=== PATIENT | female | born 1990 | race Two or more races ===

== ENCOUNTER 2023-07-13 16:13 | Emergency (ER) | payer MEDICAID, SELFPAY ==
[2023-07-13 16:32] VITALS: BP 110/77; PULSE 93; RESP 16; TEMP 36.8; O2SAT 99; BMI 28.6
--- NOTE | 2023-07-13 16:39 | ED_ITS ---
HPI - General Adult General Chief complaint: Abdominal Pain Stated complaint: vomiting diarrhea abd pain Source: patient Mode of arrival: ambulatory Limitations: no limitations History of Present Illness HPI narrative: Patient is a 32 year old assigned female at with no reported medical history presenting to the emergency department today with abdominal pain, nausea, vomiting, and diarrhea. Patient states that since yesterday she has had abdominal pain, nausea, and vomiting. Patient denies any dizziness, lightheadedness, fever, chills, blurry vision, double vision, loss of vision, chest pain, difficulty breathing, shortness of breath, back pain, night sweats, pain with urination, increased urinary frequency, increased urinary urgency, blood in her urine or stool, syncope or a near syncopal episode, recent trauma or falls, bowel incontinence, bladder incontinence, bowel retention, bladder retention, or any other complaints at this time. Onset (ago): day(s) (1) Severity: mild Relieving factors: none Exacerbating factors: none Associated symptoms: nausea/vomiting Treatments prior to arrival: none Related Data Allergies Allergy/AdvReac Type Severity Reaction Status Date / Time No Known Allergies Allergy Verified 07/13/23 16:35 [No Known Allergies*] Review of Systems 2 Constitutional: Constitutional: Reports no additional constitutional complaints, Denies chills, Denies fever(s) and Denies night sweats Eyes: Eyes: Reports no additional eye complaints, Denies blurry vision, Denies change in vision, Denies diplopia, Denies eye discharge, Denies loss of vision and Denies eye pain ENT: Denies dizziness Cardiovascular: Cardiovascular: Reports no additional cardiovascular complaints, Denies chest pain, Denies lightheadedness, Denies Loss of Consciousness and Denies dyspnea Respiratory: Respiratory: Reports no additional respiratory complaints and Denies dyspnea Gastrointestinal: Gastrointestinal: Reports no additional gastrointestinal complaints, Reports abdominal pain, Denies melena, Denies hematochezia, Denies change in bowel habits, Denies change in stool character, Reports diarrhea, Reports nausea and Reports vomiting Genitourinary: Genitourinary: Denies hematuria, Denies urinary frequency, Denies dysuria, Denies urinary incontinence, Denies urinary hesitancy and Denies urinary urgency Musculoskeletal: Musculoskeletal: Reports no additional musculoskeletal complaints, Denies numbness and Denies tingling Neurologic: Denies dizziness, Denies loss of vision, Denies numbness and Denies tingling Psychiatric: Psychiatric: Reports no additional psychiatric complaints Endocrine: Endocrine: Reports no additional endocrine complaints Hematologic/Lymphatic: Hematologic/Lymphatic: Reports no additional hematologic/lymphatic complaints Allergic/Immunologic: Allergic/Immunologic: Reports no additional allergic/immunologic complaints PMFSH Past Medical History Attestation statement: The following information was validated with the patient. Source: old records reviewed and nursing notes reviewed Social History Social History Advance Directives: No Advance Directives Information Provided: No Do you have a plan to hurt others: No Plan Physical Exam ED Vital Signs: Vital Signs - 24 hr 07/13/23 16:32 Temperature 98.3 F Pulse Rate 93 Respiratory Rate 16 Blood Pressure 110/77 Pulse Oximetry 99 Oxygen Delivery Method Room Air BMI result Body Mass Index 28.6 Const General: cooperative, no acute distress, alert and awake Nutritional Appearance: well nourished Orientation/consciousness: patient oriented x3 Limitations: no limitations HENMT Head: Yes normal to inspection and Yes atraumatic Ears: hearing grossly normal bilaterally and external ears normal General nose exam: Normal external nose present, no nasal discharge noted and no epistaxis Face and sinus: Yes normal facial exam, No abrasion and No laceration Mouth: Normal oral and palatal mucosa present, no drooling and no muffled voice Eyes General: appearance normal, both eyes and all related structures Periorbital: periorbital findings normal Eyelids: Yes eyelids normal Conjunctivae: conjunctivae normal Pupils: Equal, round and reactive pupils present EOM: EOMs intact bilaterally Neck Neck: Yes normal visual inspection, Yes full ROM and Yes no lymphadenopathy Chest Chest palpation & inspection: normal inspection of the chest Resp Effort & Inspection: normal respiratory effort and able to speak in complete sentences GI Inspection: Yes normal to inspection Neuro General: patient oriented x3 and moves all extremities Cranial nerves: Yes Equal, round and reactive pupils present Cognition (Neuro): normal cognition Motor exam (neuro): 5/5 motor strength present throughout Sensory Exam: Normal double simultaneous stimulation for sensation Coordination: [id number] test normal Extrem General: Yes normal to inspection, Yes full ROM and Yes capillary refill normal Psych Appearance: grossly normal Mental Status: mental status grossly normal Affect: normal affect Attitude: cooperative Thought process: Normal thought process present Thought content: Normal thought content present Insight: Good insight present (Psych) Course Course Course Narrative: RME performed by Tracey Romano PA-C. Patient is a 32 year old assigned female at presenting to the emergency department with nausea, vomiting, and abdominal pain. Patient states that over the last 2 days she has been unable to keep anything down with abdominal pain, nausea, and vomiting. Detailed physical exam and review of systems are deferred to the day treatment clinician/art therapist. Labs and swabs ordered. Patient placed back in the waiting room pending room availability and results. Medical Decision Making Medical Decision Making [facility] Narrative: Patient is a 32 year old assigned female at with no reported medical history presenting to the emergency department today with abdominal pain, nausea, vomiting, and diarrhea. Patient's limited physical exam performed in triage was unremarkable. Patient's blood work was unremarkable. Patient's EKG was unremarkable. Patient left the department without completing treatment. Patient left the department before myself or any of the other emergency department clinicians could explain to or review with the patient; physical exam findings, test results, need or lack there of for additional testing, need or lack there of to perform a procedure, need or lack there of for hospital admission / transfer, need or lack there of for prescription medication, treatment options, or a treatment plan. Differential Diagnosis Differential Diagnoses: The differential diagnosis associated with the presentation includes Abdominal pain Nausea Vomiting Diarrhea Viral illness Gastroenteritis Admission/Observation Consideration of admission/observation: Escalation of care including admission/observation considered Patient would have been admitted to the hospital had she completed her work up and it had any findings where hospital admission was appropriate, her clinical presentation warranted hospital admission, had myself or any other emergency geotechnical department manager had the ability to discuss need or lack there of for hospital admission, and the patient hadn't left the department without completing treatment. Lab Data [facility] Lab Attestation statement: I reviewed the patient's lab results. My interpretation of these results are in the [facility] Rationale portion of this note. 07/13/23 17:21 07/13/23 17:21 Labs: Lab Results 07/13/23 Range/Units 17:21 WBC 10.3 (4.8-10.8) X10*3/uL RBC 5.34 (4.20-5.50) X10*6/uL Hgb 15.6 (12.0-16.0) g/dl Hct 46.6 (37.0-47.0) % MCV 87.3 (80.0-98.0) fL MCH 29.2 (27.0-33.0) pg MCHC 33.5 (31.0-35.0) g/dl RDW 11.9 (11.0-16.0) % Plt Count 316 (160-400) X10*3/uL MPV 9.8 (9.4-12.3) fL Immature Gran % (Auto) 0.3 (0.0-0.4) % Neut % (Auto) 82.1 H (45-73) % Lymph % (Auto) 11.6 L (20-40) % Winkler % (Auto) 4.4 (2-11) % Eos % (Auto) 1.1 (0-4) % Baso % (Auto) 0.5 (0-2) % Lymph # (Auto) 1.2 (1.2-4.9) X10*3/uL Winkler # (Auto) 0.5 (0.1-1.2) X10*3/uL Eos # (Auto) 0.1 (0.0-0.4) X10*3/uL Baso # (Auto) 0.1 (0.0-0.2) X10*3/uL Abs Immat Gran (auto) 0.03 (0.00-0.03) X10*3/uL Absolute Neuts (auto) 8.4 H (2.0-8.3) x10*3/uL Absolute Nucleated RBC 0.000 (0.0-0.012) X10*3/uL Nucleated RBC % (auto) 0.0 (0.0-0.2) /100WBC Sodium 138 (135-145) mmol/L Potassium 4.3 (3.3-5.1) mmol/L Chloride 107 (96-108) mmol/L Carbon Dioxide 19 L (22-29) mmol/L Anion Gap 16 (12-20) BUN 8 L (9-16) mg/dL Creatinine 0.75 (0.5-1.4) mg/dL Estim Creat Clear Calc 94.5 Estimated GFR > 60 Random Glucose 79 (60-115) mg/dL Calcium 10.6 H (8.4-10.2) mg/dL Magnesium 2.1 (1.6-2.6) mg/dL Total Bilirubin 0.4 (0.0-1.0) mg/dL AST 22 (5-31) U/L ALT 24 (0-31) U/L Alkaline Phosphatase 67 (39-117) U/L Troponin I High Sens < 2.7 (<3.5-17.0) ng/L Total Protein 8.6 H (6.5-8.0) g/dL Albumin 4.6 (3.5-5.0) g/dL Beta HCG, Quant < 2 mIU/mL Influenza Type A (PCR) NEGATIVE (Negative) Influenza Type B (PCR) NEGATIVE (Negative) RSV RNA Qual (PCR) NEGATIVE (Negative) SARS-CoV-2 RNA (RT-PCR) NEGATIVE (Negative) Independent Interpretation I performed an independent interpretation of an: EKG Interpretation: Vent. Rate: 083 BPM Atrial Rate: 083 BPM P-R Int: 144 ms QRS Dur: 068 ms QT Int: 338 ms P-R-T Axes: 084 050 028 degrees QTc Int: 397 ms Normal sinus rhythm Normal ECG No previous ECGs available Electronically Signed By:Michael Sumner Dictated By: Michael Sumner MD Signed By: Electronically signed by Michael Sumner MD 07/14/23 [id number] Discharge Plan Discharge Clinical Impression: Abdominal pain, Nausea & vomiting Patient Disposition: Left W/O Completing Treatment Discharge Date/Time: 07/13/23 22:23
--- NOTE | 2023-07-13 16:40 | ECG_ITS ---
Test Reason : VOMIT Blood Pressure : / mmHG Vent. Rate : 083 BPM Atrial Rate : 083 BPM P-R Int : 144 ms QRS Dur : 068 ms QT Int : 338 ms P-R-T Axes : 084 050 028 degrees QTc Int : 397 ms Normal sinus rhythm Normal ECG No previous ECGs available Referred By: Tracey Romano Electronically Signed By:Michael Sumner
[2023-07-13 17:26] LABS: MANUAL DIFF FLAG NO
[2023-07-13 17:35] LABS: Basophils Absolute Auto 0.1 X10*3/uL (0.0-0.2); Basophils Percent Auto 0.5 % (0-2); Eosinophils Absolute Auto 0.1 X10*3/uL (0.0-0.4); Eosinophils Percent Auto 1.1 % (0-4); Hematocrit 46.6 % (37.0-47.0); Hemoglobin 15.6 g/dl (12.0-16.0); Imm Gran Abs Auto 0.03 X10*3/uL (0.00-0.03); Imm Gran Pct Auto 0.3 % (0.0-0.4); Lymphocytes Absolute Auto 1.2 X10*3/uL (1.2-4.9); Lymphocytes Percent Auto 11.6 % (20-40); Mean Corpuscular HGB Conc 33.5 g/dl (31.0-35.0); Mean Corpuscular Hemoglobin 29.2 pg (27.0-33.0); Mean Corpuscular Volume 87.3 fL (80.0-98.0); Mean Platelet Volume 9.8 fL (9.4-12.3); Monocytes Absolute Auto 0.5 X10*3/uL (0.1-1.2); Monocytes Percent Auto 4.4 % (2-11); Neutrophils Absolute Auto 8.4 x10*3/uL (2.0-8.3); Neutrophils Percent Auto 82.1 % (45-73); Platelet Count 316 X10*3/uL (160-400); Red Blood Count 5.34 X10*6/uL (4.20-5.50); Red Cell Distribution Width 11.9 % (11.0-16.0); White Blood Count 10.3 X10*3/uL (4.8-10.8)
[2023-07-13 17:59] LABS: Troponin-I High Sensitivity < 2.7 ng/L (<3.5-17.0)
[2023-07-13 18:04] LABS: Influenza A PCR NEGATIVE (Negative); Influenza B PCR NEGATIVE (Negative); Resp Syncy Virus RNA Qual PCR NEGATIVE (Negative); SARS COV2 PCR INHOUSE NEGATIVE (Negative)
[2023-07-13 18:41] LABS: Anion Gap 16 (12-20)
[2023-07-13 18:49] LABS: Alanine Aminotransferase 24 U/L (0-31); Albumin Level 4.6 g/dL (3.5-5.0); Alkaline Phosphatase 67 U/L (39-117); Aspartate Amino Transferase 22 U/L (5-31); Bilirubin Total 0.4 mg/dL (0.0-1.0); Blood Urea Nitrogen 8 mg/dL (9-16); Calcium 10.6 mg/dL (8.4-10.2); Carbon Dioxide 19 mmol/L (22-29); Chloride 107 mmol/L (96-108); Creatinine Clr Calc Pharmacy 94.5; Estimated Glomerular Filt Rate > 60; Glucose Random 79 mg/dL (60-115); Magnesium 2.1 mg/dL (1.6-2.6); Potassium 4.3 mmol/L (3.3-5.1); Sodium 138 mmol/L (135-145); Total Protein 8.6 g/dL (6.5-8.0)
[2023-07-13 19:01] LABS: HCG Quantitative < 2 mIU/mL
== END 2023-07-13 22:23 | disposition left against medical advice (07) ==
LOC: HO.ED 22:21
PROVIDERS: Physician Assistant Medical; Emergency Provider Emergency Medicine
DX: R11.2 Nausea with vomiting, unspecified (principal); R19.7 Diarrhea, unspecified; R10.9 Unspecified abdominal pain; Z03.818 Encounter for observation for suspected exposure to other biological agents ruled out
CPT/HCPCS: 0241U; 80053; 83735; 84484; 84702; 85025; 93005; 99283

== ENCOUNTER → 2023-07-13 16:40 | Outpatient (BNV) | payer MEDICAID, SELFPAY | PROVIDERS: Emergency Provider Emergency Medicine; Visit Provider Internal Medicine Cardiovascular Disease | DX: R11.10 Vomiting, unspecified (principal) | CPT/HCPCS: 93010 ==

== ENCOUNTER → 2024-09-18 21:57 | Outpatient (BNV) | payer MEDICAID, SELFPAY | PROVIDERS: Visit Provider Radiology Neuroradiology | DX: M79.641 Pain in right hand (principal) | CPT/HCPCS: 73130 ==

== ENCOUNTER 2024-09-18 22:27 | Emergency (ER) | payer MEDICAID, SELFPAY ==
--- NOTE | ~2024-09-18 | XR_ITS ---
CLINICAL HISTORY: fall injury pain 3 view right hand Comparison: None provided Findings: Acute comminuted fracture with mild displacement and angulation involves the middle phalanx of the middle finger distal articulation involving suggested on the lateral image. Small subchondral cysts of the likely osteoarthritis in the lunate. Acute soft tissue swelling present. Mild deformity of the imaged 5th metacarpal appears old/chronic. No dislocation. Likely small right effusion. No radiopaque foreign body. IMPRESSION: 1. Acute fracture of the middle phalanx of the middle finger. 2. No dislocation. This document has been electronically signed by: Vernon Martin MD on 09/19/2024 00:00:02
[2024-09-18 22:38] VITALS: BP 91/65; PULSE 84; RESP 18; TEMP 36.4; O2SAT 100; BMI 27.9
--- NOTE | 2024-09-19 01:21 | ED_ITS ---
HPI - Extremity Problem General Chief complaint: Extremity Injury, Upper Stated complaint: right hand injur from fall swollen fingers Time Seen by Provider: 09/19/24 00:48 Source: patient Limitations: no limitations History of Present Illness ED Provider: Uzma Rose PA-C HPI Narrative: 33-year-old female presents with right hand pain. Patient states she was in a river, she slipped, landing on her right hand. Now with right middle finger swelling and pain. Related Data Previous Rx's ?Medication ?Instructions ?Recorded ibuprofen 600 mg tablet 600 mg PO Q6H PRN pain #20 t abs 09/19/24 oxycodone 5 mg tablet 5 mg PO Q8H PRN pain, modera te #10 09/19/24 tabs Allergies Allergy/AdvReac Type Severity Reaction Status Date / Time No Known Allergies (No Known Allergy Verified 09/18/24 22:43 Allergies*) Review of Systems Review of Systems: Yes all other systems are reviewed and are negative Constitutional: Constitutional: Denies fatigue and Denies fever(s) Musculoskeletal: Musculoskeletal: Reports arthralgias and Reports joint swelling Endocrine: Endocrine: Denies fatigue [facility] Past Medical History Attestation statement: The following information was validated with the patient. Social History Social History Advance Directives: No Advance Directives Information Provided: No Do you have a plan to hurt others: No Plan Physical Exam Vital Signs: Vital Signs: Last Vital Signs Temp 97.6 F 09/18/24 22:38 Pulse 84 09/18/24 22:38 Resp 18 09/18/24 22:38 BP 91/65 09/18/24 22:38 Pulse Ox 100 09/18/24 22:38 O2 Del Method Room Air 09/18/24 22:38 BMI result Body Mass Index 27.9 Const: Other: Alert Orientation/consciousness: patient oriented x3 Resp: Effort & Inspection: normal respiratory effort Cardio: Other: Normal peripheral perfusion Skin: Other: Warm dry no rash Neuro: General: patient oriented x3, gait normal, no focal motor deficits and CN's II-XI intact bilaterally Extrem: Other: The right 3rd digit is swollen and ecchymotic, held in flexion, able to extend but very painful Psych: Other: Cooperative Medical Decision Making Medical Decision Making [facility] Narrative: 33-year-old female presents with right hand pain. Patient states she was in a river, she slipped, landing on her right hand. Now with right middle finger swelling and pain. No chronic issues History: Per patient I have considered the following differential diagnoses: Fracture, dislocation, contusion, sprain Plan: X-ray obtained from triage, there was a fracture of the right 3rd digit we will place in a splint and have them follow up with the ortho. I have independently reviewed the following tests: X-ray right hand:Findings: Acute comminuted fracture with mild displacement and angulation involves the middle phalanx of the middle finger distal articulation involving suggested on the lateral image. Small subchondral cysts of the likely osteoarthritis in the lunate. Acute soft tissue swelling present. Mild deformity of the imaged 5th metacarpal appears old/chronic. No dislocation. Likely small right effusion. No radiopaque foreign body. IMPRESSION: 1. Acute fracture of the middle phalanx of the middle finger. 2. No dislocation. Discharge Plan Discharge Clinical Impression: Finger fracture, right Patient Disposition: Home, Self-Care Instructions: Finger Fracture (ED) Additional Instructions: You broke your middle finger. Keep the splint in place until you follow up with the orthopedic service. Use the ibuprofen as directed take it with food. Take the oxycodone as needed, this medication can be constipating, you should use [id number] Colace which is a stool softener, to help prevent constipation. I provided you with a contact for the orthopedic service. Call to schedule a follow up appointment. Prescriptions: New oxycodone 5 mg tablet 5 mg PO Q8H PRN (Reason: pain, moderate) Qty: 10 0RF Rx Instructions: Partial Fill upon patient request. ibuprofen 600 mg tablet 600 mg PO Q6H PRN (Reason: pain) Qty: 20 0RF Referrals: Cheryl Jordan MD [Physician, Hand Surgery] Referral Note: Acute fracture of the middle phalanx of the middle finger, right hand Print Language: Thai
[2024-09-19] MEDS: oxyCODONE HCl Immed Release 5 MG TABLET PO (01:34)
[2024-09-19 01:40] VITALS: BP 106/72; PULSE 87; RESP 18; TEMP 36.4; O2SAT 99
[2024-09-19 01:41] VITALS: BP 106/72; PULSE 87; RESP 18; TEMP 36.4; O2SAT 99
== END 2024-09-19 01:42 | disposition home or self-care (01) ==
PROVIDERS: Emergency Provider Emergency Medicine
DX: S62.602A Fracture of unspecified phalanx of right middle finger, initial encounter for closed fracture (principal); M79.641 Pain in right hand; X50.0XXA Overexertion from strenuous movement or load, initial encounter; Y93.01 Activity, walking, marching and hiking; Y92.828 Other wilderness area as the place of occurrence of the external cause; Y99.8 Other external cause status
CPT/HCPCS: 29130; 73130; 99284

== ENCOUNTER 2024-09-20 13:19 | Outpatient (AMB) | payer MEDICAID, SELFPAY ==
[2024-09-20 13:41] VITALS: BMI 27.8
--- NOTE | 2024-09-20 13:41 | A.OFFVIS_ITS ---
Vital Signs 09/20/24 13:41 Height 5 ft 1 in Weight 147 lb BMI 27.8 Intake Visit Reasons: FC - right middle finger fx, DOI 09/18/24 Intake Note: Cheri 33 yr old right hand dominant female presents today for a fracture care visit for her right middle finger. States on 09/18/24, while in a river, she slipped and put her hand to break her fall injuring her middle finger. Seen in [facility] ED where xrays were taken and a fracture was confirmed. Patient was splinted and referred to Dr. Jordan. Currently states she has pain, throbbing and swelling. She is not able to bend at her PIP. Reports numbness and tingling only in her middle finger. Allergies No Known Allergies (No Known Allergies*) Allergy (Verified 09/20/24 13:48) HPI HPI FC - right middle finger fx, DOI 09/18/24: Details: Cheri is a 33 year old right hand dominant Moroccan speaking woman who presents for a right middle finger fracture, after a fall, DOI: 09/18/24. She was seen in the ED and her finger was splinted. She complains of painful throbbing & swelling in her middle finger. She also complains of new numbness & tingling in her middle finger, which was not present prior to her injury. 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 Review of Systems Const All systems reviewed & are unremarkable except as noted in HPI and below Physical Exam Vital Signs: BMI result Body Mass Index 27.8 Const General: cooperative, healthy appearing and no acute distress Orientation/consciousness: patient oriented x3 HEENT Head: Yes normocephalic and Yes atraumatic Eyes EOM: EOMs intact bilaterally Resp Effort & Inspection: normal respiratory effort and able to speak in complete sentences Cardio Jugular venous distension: no JVD Skin General skin exam: turgor normal Rashes: no rashes Neuro General: patient oriented x3 Extrem Other: Evaluation of Right Upper Extremity: The patient is alert, oriented, and in no acute distress She has some decreased sensation to the tip of the middle finger Cap refill brisk The patient at 1st told us that she was on antibiotics, so I thought perhaps she had an open fracture. There were no lacerations or abrasions or evidence of open fracture. And it turns out we do not see an antibiotic prescription, but rather prescriptions for ibuprofen and oxycodone. She has some mild swelling and some ecchymosis of the middle finger about the middle phalanx. Most tender over the fracture site She was in a volar finger splint tape to the skin of the finger. No appreciable malrotation Radiographs: 3 views of the right hand from 09/19/24 were reviewed by me today in clinic. They show a middle finger middle phalanx fracture with some displacement. Psych Appearance: grossly normal Affect: normal affect Attitude: cooperative Assessment & Plan Assessment & Plan (1) Fracture of phalanx of right middle finger: Code(s): S62.602A - Fracture of unspecified phalanx of right middle finger, initial encounter for closed fracture Category: Medical Plan Assessment & Plan: 1. Right middle finger middle phalanx fracture, From a fall, DOI: 09/18/24 I educated her about this condition I discussed operative and non-operative treatment options and I am recommending operative fixation The patient would like to proceed with surgery I reviewed her ED note, there is nothing in there concerning an open fracture or Abx prescription. The patient also has no physical evidence of open fracture on exam today. The risks and benefits of operative treatment were discussed with the patient and the patient wishes to proceed with surgery. These risks include, but are not limited to risk of damage to blood vessels, nerves, tendons, infection, recurrence, incomplete relief of preoperative symptoms, persistent pain, possible need for further surgery and the risks associated with regional blocks and anesthesia. The plan is to take the patient to the operating room sometime on 09/26/24 for the following procedures: 1. Right middle finger middle phalanx CRPP vs ORIF, under general All of the preoperative paperwork including the consent was reviewed today. All the patient's questions were answered. The patient understands that they will be contacted by our spot cleaner soon to schedule this procedure She denies Diabetes, blood thinners, asthma, heart, lung, kidney issues Scribed for Cheryl Jordan MD by Vernon Mathias biomedical manager, on 09/20/24 at 2:05 PM, EST. Medications: Discontinued oxycodone Partial Fill upon patient request. Discontinued Reason: Patient Completed Course 5 mg PO Q8H PRN 10 tabs 0RF pain, moderate Coding Level of Care Code New Pt Level 4 (35782) Diagnoses Fracture of phalanx of right middle finger S62.602M
== END 2024-09-20 14:35 | disposition home or self-care (01) ==
PROVIDERS: Visit Provider Orthopaedic Surgery
DX: S62.602A Fracture of unspecified phalanx of right middle finger, initial encounter for closed fracture (principal)
CPT/HCPCS: 99204

== ENCOUNTER → 2024-09-20 13:19 | Outpatient (BNVA) | payer MEDICAID, SELFPAY | PROVIDERS: Visit Provider Orthopaedic Surgery | DX: M79.641 Pain in right hand (principal); S62.602A Fracture of unspecified phalanx of right middle finger, initial encounter for closed fracture | CPT/HCPCS: 99202 ==

== ENCOUNTER 2024-09-26 09:18 | Day surgery (SDC) | payer MEDICAID, SELFPAY ==
--- NOTE | 2024-09-22 14:19 | P.CONAN_ITS ---
Documented by User: Doris Fenton NP 09/22/24 14:19 HPI - Anesthesia Eval Consult details Narrative: 33yo F for Right Middle Finger CRPP vs ORIF Metacarpal PMFSH Active Problems Active Problems: All Active Problems (Updated 09/20/24 @ 13:52 by Vernon Mathias) Fracture of phalanx of right middle finger (Acute) Past Medical History Medical History (Updated 09/26/24 @ 08:36 by Dottie Cespedes, GERALDINE) Hx of fall Hx of gastritis Hx of nausea and vomiting Hx of abdominal pain Surgical History Surgical History (Updated 09/26/24 @ 08:36 by Dottie Cespedes RN) No pertinent past surgical history Social History Social History (Updated 09/20/24 @ 13:49 by Selene Parsons [facility]) Patient Tobacco Use Status: Never used Tobacco Have you been hit, kicked, punched, or otherwise hurt by someone within the past year? 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 Meds Allergies Allergy/AdvReac Type Severity Reaction Status Date / Time No Known Allergies (No Known Allergy Verified 09/20/24 13:48 Allergies*) Home Medications ?Medication ?Instructions ?Recorded ?Confirmed ?Last Taken ?Type oxycodone 5 mg tablet 5 mg PO Q8H PRN Pain (Scale Score 09/26/24 09/26/24 Unknow n History 4-6) Assessment and Plan Assessment Anesthesia Assessment: Chart Reviewed Documented by User: Dhruv Bella MD 09/26/24 12:32 PMFSH Past Medical History Medical History (Updated 09/26/24 @ 08:36 by Dottie Cespedes RN) Hx of fall Hx of gastritis Hx of nausea and vomiting Hx of abdominal pain Patient : No Family History Family history of problems with anesthesia: No Surgical History Surgical History (Updated 09/26/24 @ 08:36 by Dottie Cespedes RN) No pertinent past surgical history History of Problems with Anesthesia: No Social History Social History (Updated 09/20/24 @ 13:49 by DELPHINE Olsen) Patient Tobacco Use Status: Never used Tobacco Have you been hit, kicked, punched, or otherwise hurt by someone within the past year? 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 Meds Allergies Allergy/AdvReac Type Severity Reaction Status Date / Time No Known Allergies (No Known Allergy Verified 09/20/24 13:48 Allergies*) Home Medications ?Medication ?Instructions ?Recorded ?Confirmed ?Last Taken ?Type oxycodone 5 mg tablet 5 mg PO Q8H PRN Pain (Scale Score 09/26/24 09/26/24 Unknown History 4-6) Exam Airway Mallampati Class: I TM Dist: >3cm Neck ROM: Full Loose/Missing/Broken Teeth: No Heart: RRR Lungs: CTA Assessment and Plan Final Anesthetic Review Family History of Problems with Anesthesia: No History of Problems with Anesthesia: No NPO: Yes ASA Class: II Patient Risk: Low Procedure Risk: Low Anesthetic Plan Anesthetic Plan: GA Disposition: Standard PACU
[2024-09-24 09:40] VITALS: BMI 27.8
--- NOTE | ~2024-09-26 | FL_ITS ---
EXAMINATION: FL GUIDANCE ONLY HISTORY: right middle finger fracture COMPARISON: Correlation is made with plain films of the right hand dated 09/18/2024. TECHNIQUE: Fluoroscopy time: 75.84 seconds. Cumulative Dose: 1.2848 mGy. DAP: 0.0776 mGym2 Images: 6. FINDINGS: Fluoroscopic spot films of the right hand demonstrate internal fixation of the previously seen fracture of the middle phalanx of the middle finger with a K wire. FL/FL guidance in OR IMPRESSION: Fluoroscopy during procedure. Please see procedure report for additional information. Electronically signed by: Yamil Wilkins MD 09/27/2024 07:00 AM EDT
[2024-09-26 09:29] VITALS: BP 108/71; PULSE 77; RESP 20; TEMP 36.3; O2SAT 98; BMI 27.9
[2024-09-26 09:32] LABS: UPreg QC Valid YES
[2024-09-26] MEDS: Lactated Ringers 1,000 ML 100 ML IVCONT (09:41)
--- NOTE | 2024-09-26 10:35 | MHC.SHP ---
Pre-Procedural Eval Section A - 24 Hr Update-Section A only Date of Service: 09/26/24 The patient is an INPATIENT: No Changes since office visit: No Cold of Flu in the past 2 weeks, No New Medical Problems, No Changes in Medication and No Patient answered all questions The patient has been examined within 24 hours of the surgical procedure. The History & Physical has been completed within 30 days and I have reviewed it.: Yes Section B - Complete if H&P > 30 days Chief Complaint: Fracture of unspecified phalanx of right middle Allergies: Allergies Allergy/AdvReac Type Severity Reaction Status Date / Time No Known Allergies (No Known Allergy Verified 09/20/24 13:48 Allergies*) Plan I have reviewed the history and physical and performed a pertinent physical examination on my patient. No changes have occurred unless specified. Time Spent With Patient Time: Total time managing care of this patient today ____ minutes.
--- NOTE | 2024-09-26 10:35 | W.PM.OPN ---
Operative Note Operative Note Date of Service: 09/26/24 Narrative: Operative Note Narrative: Preop diagnosis: 1. Right middle finger middle phalanx fracture Postop diagnosis: Same Procedure: 1. Right middle finger middle phalanx fracture closed reduction percutaneous pinning Surgeon: Cheryl Jordan MD Vacuum Plastic Forming Machine Operator: None Anesthesia: General Anesthesia Findings: finger fracture Implants: 0.045 K-wires times 1 Tourniquet time: None EBL: Minimal Specimen: None Drains: None Complications: None Disposition: Brought to the recovery room in stable condition Plan: Follow-up in 10-14 days for a wound check, postop radiographs Consider short-arm finger spica cast versus finger splint with pin site care Anticipate K-wire removal in 4-5 weeks based on interval bony healing Educate the patient that full fracture healing anticipated in approximately 8-12 weeks. Indications: The patient is 33 years old with a right middle finger middle phalanx fracture . The risks and benefits of operative treatment, including but not limited to risk of damage to blood vessels, nerves, tendons, infection, recurrence, delayed or nonunion of fracture, persistent pain or numbness, incomplete resolution of preoperative symptoms, or need for further surgery were discussed with the patient and they wished to proceed with surgery. Procedure: Once consent was obtained patient was brought back to the operating suite and placed in the operating table in a supine position. . Perioperative antibiotics and general anesthesia was administered by the anesthesia team. A tourniquet was applied to the proximal aspect of the right upper extremity and the limb was prepped and draped in a standard surgical fashion. Tourniquet was not inflated during the case. The FluoroScan was used during the case to assist with our fracture reduction and placement of all implants. A closed reduction was performed on the patient's right middle finger middle phalanx fracture. I placed a single 0.045 K-wire retrograde through the tip of the right middle finger distal phalanx. This was advanced retrograde across the D IP joint, and then advanced across the fracture site and down to the base of the middle phalanx. Fracture alignment was assessed for both angular and rotational malalignment. Once satisfied with our fracture reduction and implant placement, the K-wire was bent and cut short and pin caps applied. Final fluoroscopic images were then obtained. The wounds were copiously irrigated with normal saline. A digital block was then performed using some 1% lidocaine with epinephrine for postop pain control. A Sterile dressing and short volar splint extending from the tips of the middle ring and small fingers to the forearm was applied. The patient appears to have tolerated the procedure well and with no complications. All digits were well vascularized at the conclusion of the case.
[2024-09-26 14:04] VITALS: BP 103/54; PULSE 96; RESP 16; TEMP 36.7; O2SAT 99
[2024-09-26 14:09] VITALS: BP 100/59; PULSE 97; RESP 16; O2SAT 99
[2024-09-26 14:14] VITALS: BP 110/64; PULSE 95; RESP 17; O2SAT 95
[2024-09-26 14:19] VITALS: BP 106/63; PULSE 94; RESP 18; O2SAT 96
[2024-09-26 14:34] VITALS: BP 107/65; PULSE 95; RESP 18; TEMP 36.7; O2SAT 96
== END 2024-09-26 15:06 | disposition home or self-care (01) ==
PROVIDERS: Nurse Practitioner; Visit Provider Orthopaedic Surgery
PROC: (CPT 26727; principal; 2024-09-26 14:50)
DX: S62.622A Displaced fracture of middle phalanx of right middle finger, initial encounter for closed fracture (principal); R20.0 Anesthesia of skin; R20.2 Paresthesia of skin; W01.0XXA Fall on same level from slipping, tripping and stumbling without subsequent striking against object, initial encounter; Y93.9 Activity, unspecified; Y92.828 Other wilderness area as the place of occurrence of the external cause; Y99.9 Unspecified external cause status; Z56.0 Unemployment, unspecified
CPT/HCPCS: 26727; 81025; J0131; J0690; J1100; J2003; J2004; J2250; J2704; J3010

== ENCOUNTER → 2024-09-26 09:18 | Outpatient (BNV) | payer MEDICAID, SELFPAY | PROVIDERS: Visit Provider Orthopaedic Surgery | DX: S62.632A Displaced fracture of distal phalanx of right middle finger, initial encounter for closed fracture (principal) | CPT/HCPCS: 26727 ==

== ENCOUNTER 2024-10-11 08:37 | Outpatient (REF) | payer MEDICAID, SELFPAY ==
--- NOTE | ~2024-10-11 | XR_ITS ---
EXAMINATION: XR HAND 3 OR MORE VIEWS RIGHT HISTORY: M79.641 - Pain in right hand COMPARISON: Comparison is made with the prior examination dated 09/18/2024. FINDINGS: Three views of the right hand are submitted. Osseous mineralization is normal. The patient is status post internal fixation of the previously seen oblique fracture of the middle phalanx of the middle finger with a K wire. The joint spaces are preserved. The soft tissues are unremarkable. XR/XR hand RT min 3V IMPRESSION: Internal fixation of the previously seen fracture of the middle phalanx of the middle finger. Electronically signed by: Yamil Wilkins MD 10/11/2024 02:43 PM EDT
--- OUTSIDE RECORDS SUMMARY | 2024-10-12 08:49 | XMS_ITS | Clinical Summary ---
Author Organization [employer] Address [address] [place] [address] [address] [place] [address] Care Team Providers Care Recovery Operator Helper Name Role Phone Unavailable Primary Care Provider [...] (09/26/2024 12:00 AM EDT) Urine NEGATIVE NEGATIVE [facility] Comment:This test was develo ped to detect early . Falsenegative results may occur after the 5th - 7th week ofpregnancy when using this test method. If clinicallyindicated, consider a serum hCG. 09/26/2024 09/26/2024 us Generic External Data Provider LAB URINE ORDERAB LES Final Result [facility] [address] [place] [phone] from Last 3 Months
== END 2024-10-11 08:38 | disposition home or self-care (01) ==
LOC: HO.HOSX 08:37
PROVIDERS: Visit Provider Orthopaedic Surgery
DX: S62.622A Displaced fracture of middle phalanx of right middle finger, initial encounter for closed fracture (principal); X58.XXXA Exposure to other specified factors, initial encounter; M79.641 Pain in right hand
CPT/HCPCS: 73130; 99212

== ENCOUNTER 2024-10-11 14:25 | Outpatient (AMB) | payer MEDICAID, SELFPAY ==
--- NOTE | 2024-10-11 14:27 | MHC.OFFVIS ---
Vital Signs 10/11/24 14:38 Height 5 ft 1 in Weight 154 lb BMI 29.1 Intake Visit Reasons: PO RT MF CRPP v ORIF 09/26/24 AR Intake Note: Cheri 34 yr old right hand dominant female presents today for her post op visit for her right hand middle finger CRPP DOS 09/26/24. Dressing removed in office and xrays updated. States she is doing well, mild pain and discomforft. Allergies No Known Allergies (No Known Allergies*) Allergy (Verified 10/11/24 14:37) HPI HPI PO RT MF CRPP v ORIF 09/26/24 AR: Details: The patient is a 34-year-old woman who is status post right middle finger middle phalanx fracture CRPP with me on 09/26/2024. Her date of injury was 09/20/2024. She says that she is doing well. She does take care of her 2-1/2-year-old niece. 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 Her pin site was clean dry and intact with no erythema drainage or evidence of infection. Her middle phalanx fracture now is not particularly tender to palpation. Mild stiffness in the middle finger PIP joint. We did have her work on MCP and PIP joint motion after we to the postop splint off. Cap refill brisk sensation intact. Radiographs: Three views of the right hand were taken today and reviewed by me in clinic. They show a right middle finger spiral oblique middle phalanx fracture in satisfactory fracture alignment with satisfactory position of a longitudinally oriented K-wire. Assessment & Plan Assessment & Plan (1) Fracture of phalanx of right middle finger: Code(s): S62.602A - Fracture of unspecified phalanx of right middle finger, initial encounter for closed fracture Category: Medical Plan Assessment and plan: 1. Right middle finger spiral oblique middle phalanx fracture, status post CRPP Date of surgery 09/26/2024 She appears to be doing well. I educated her about the postoperative course. We are placing her in a short-arm finger spica cast. She will follow up in 2 weeks with new radiographs three views out of plaster If she has good evidence of bony healing the plan is to remove the K-wire at that time and begin arabella taping for range of motion. Orders: Orders XR hand RT min 3V Today M79.641 - Pain in right hand Coding Level of Care Code Global (54970) Diagnoses Fracture of phalanx of right middle finger S62.602A
[2024-10-11 14:38] VITALS: BMI 29.1
--- OUTSIDE RECORDS SUMMARY | 2024-10-11 15:04 | XMS_ITS | Clinical Summary ---
Author Organization [employer] Address [address] [place] [address] [address] [place] [address] Care Team Providers Care Voltage Tester Name Role Phone Unavailable Primary Care Provider Unavailabl e Encounters Date Type Department Care Team Description 09/26/2024 Orders Only GENERIC EXTERNAL DATA DEPARTMENT Provider, Generic External Data from Last 3 Months Social History Tobacco Use Types Packs/Day Years Used Date Smoking Tobacco: Never Assessed Comments Unknown Sex and Gender Information Value Date Recorded Sex Assigned at Female 01/06/2022 10:32 AM EDT Legal Sex Female 10:32 AM EDT Gender Identity Not on file Sexual Orientation Not on file Plan of Treatment Health Maintenance Due Date Last Done Comments Depression Screening 1989 HIV Screening 1989 Disability Screening 1989 Alcohol/Substance Use Screening 2001 Tobacco Screening 2001 Family Planning (PISQ) 2004 HPV Vaccines (1 - 3-dose series) 2004 Hepatitis C Screening 10/06/2007 DTaP/Tdap/Td Vaccines (1 - Tdap) 2008 Hepatitis B Vaccines (1 of 3 - 19+ 3-dose series) 2008 Pap Smear 2010 Cervical Cancer Screening 10/06/2019 HPV/Cotest 10/06/2019 COVID-19 Vaccine (1 - 2023-2 5 season) 2023 Influenza Vaccine (#1) 2024 Zoster Vaccines (1 of 2) 10/06/2039 RSV Patients and Pa tients Aged 60 years or older (1 - 1-dose 75+ series) 2064 HIB Vaccines Aged Out No longer eligi ble based on patient's age to complete this topic Hepatitis A Vaccines Aged Out No long er eligible based on patient's age to complete this topic IPV Vaccines Aged Out No longer eligi ble based on patient's age to complete this topic Meningococcal B Vaccine Aged Out No l onger eligible based on patient's age to complete this topic Meningococcal Vaccine Aged Out No jeancarlos cas eligible based on patient's age to complete this topic Pneumococcal Vaccine: Pediat rics (0 to 5 Years) and At-Risk Patients (6 to 49) Years Aged Out No longer eligible b ased on patient's age to complete this topic RSV under 20 months Aged Out No longe r eligible based on patient's age to complete this topic Rotavirus Vaccines Aged Out No longer eligible based on patient's age to complete this topic Procedures Procedure Name Priority Date/Time Associated Diagnosis Comments HCG, QL, URINE Routine 09/26/2024 12:00 AM EDT from Last 3 Months Results * HCG, Qualitative, Urine (09/26/2024 12:00 AM EDT) Urine NEGATIVE NEGATIVE [facility] Comment:This test was develo ped to detect early . Falsenegative results may occur after the 5th - 7th week ofpregnancy when using this test method. If clinicallyindicated, consider a serum hCG. 09/26/2024 09/26/2024 us Generic External Data Provider LAB URINE ORDERAB LES Final Result [facility] [address] [place] [phone] from Last 3 Months
== END 2024-10-11 15:22 | disposition home or self-care (01) ==
LOC: HO.HOS 14:26
PROVIDERS: Visit Provider Orthopaedic Surgery
DX: S62.602A Fracture of unspecified phalanx of right middle finger, initial encounter for closed fracture (principal)
CPT/HCPCS: 99024

== ENCOUNTER → 2024-10-11 14:28 | Outpatient (BNV) | payer MEDICAID, SELFPAY | PROVIDERS: Visit Provider Radiology Diagnostic Radiology | DX: M79.641 Pain in right hand (principal); S62.622A Displaced fracture of middle phalanx of right middle finger, initial encounter for closed fracture | CPT/HCPCS: 73130 ==

== ENCOUNTER 2024-10-25 09:21 | Outpatient (REF) | payer MEDICAID, SELFPAY ==
--- NOTE | ~2024-10-25 | XR_ITS ---
EXAMINATION: XR HAND, RIGHT CLINICAL INFORMATION: M79.641 - Pain in right hand COMPARISON: 10/11/2024 TECHNIQUE: PA, lateral, and oblique views of the right hand. FINDINGS: Redemonstration of K wire fixating a spiral fracture of the middle phalanx of the third digit. Alignment is anatomic and unchanged. No complication. Fracture lines still well seen without gross bridging bony callus at this point. Joint spaces appear normal. Soft tissues are unremarkable. XR/XR hand RT min 3V IMPRESSION: No significant interval change in the fixated fracture of the middle phalanx of the third digit. Electronically signed by: Jose Sandoval MD 10/25/2024 02:40 PM EDT
--- OUTSIDE RECORDS SUMMARY | 2024-10-26 10:04 | XMS_ITS | Clinical Summary ---
Author Organization [employer] Address [address] [place] [address] [address] [place] [address] Care Team Providers Care Picking Machine Operator Name Role Phone Unavailable Primary Care Provider [...] (09/26/2024 12:00 AM EDT) Urine NEGATIVE NEGATIVE [facility] Comment:This test was develo ped to detect early . Falsenegative results may occur after the 5th - 7th week ofpregnancy when using this test method. If clinicallyindicated, consider a serum hCG. 09/26/2024 09/26/2024 us Generic External Data Provider LAB URINE ORDERAB LES Final Result [facility] [address] [place] [phone] from Last 3 Months
== END 2024-10-25 09:22 | disposition home or self-care (01) ==
LOC: HO.HOSX 09:21
PROVIDERS: Visit Provider Orthopaedic Surgery
DX: Z47.89 Encounter for other orthopedic aftercare (principal); S62.622A Displaced fracture of middle phalanx of right middle finger, initial encounter for closed fracture; M79.641 Pain in right hand; X58.XXXA Exposure to other specified factors, initial encounter
CPT/HCPCS: 73130; 99212

== ENCOUNTER 2024-10-25 14:19 | Outpatient (AMB) | payer SELFPAY ==
--- NOTE | 2024-10-25 14:49 | MHC.OFFVIS ---
Vital Signs 10/25/24 14:50 Height 5 ft 1 in Weight 154 lb BMI 29.1 Intake Visit Reasons: PO RT MF CRPP v ORIF 09/26/24 AR Intake Note: Cheri 34 yr old right hand dominant female presents today for her post op visit for her right hand middle finger CRPP DOS 09/26/24. Cast removed in office and xrays updated. States she is ready to have pins removed today. Allergies No Known Allergies (No Known Allergies*) Allergy (Verified 10/25/24 14:56) HPI HPI PO RT MF CRPP v ORIF 09/26/24 AR: Details: Cheri is a 33 year old right hand dominant [place]ian speaking woman who returns S/P right middle finger middle phalanx CRPP, DOS: 09/26/24. She says she is doing well and is ready to have her pins removed today. She does care for her 2 year old niece. 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 She can actively flex the MCP & PIP joits to a fist. Some understandable stiffness at the DIP joint Flexion contracture at the middle finger PIP joint of ~10-15 degrees Sensation is intact Cap refill is brisk Radiographs: 3 views of the right hand were taken and viewed by me today in clinic. They show a right middle finger spiral oblique middle phalanx fracture in satisfactory fracture alignment with satisfactory position of a longitudinally oriented K-wire. Psych Appearance: grossly normal Affect: normal affect Attitude: cooperative Assessment & Plan Assessment & Plan (1) Fracture of phalanx of right middle finger: Code(s): S62.602A - Fracture of unspecified phalanx of right middle finger, initial encounter for closed fracture Category: Medical Plan Assessment and plan: 1. Right middle finger spiral oblique middle phalanx fracture, S/P CRPP DOS: 09/26/24 K-wire removed today. 2. Right middle finger stiffness The patient appears to be doing well post-operatively I educated her about the post-operative course I explained the signs and symptoms of infection, if the patient develops any new or worsening erythema, drainage, pain, or warmth they should contact the clinic or attend the ED. I discussed activity modifications, she is to lift nothing heavier than a cellphone for the next 4 weeks She will perform gentle ROM exercises at home She should avoid any underwater activities for the next 5 days I ordered OT hand therapy to work on ROM & normalizing function She will follow up prn Scribed for Cheryl Jordan MD by Vernon Mathias, medical equipment technician, on 10/25/24 at 3:15 PM, EST. Orders: Orders XR hand RT min 3V Today M79.641 - Pain in right hand OT Evaluation and Treatment Today S62.602A - Fracture of unspecified phalanx of right middle finger, initial encounter for closed fracture Coding Level of Care Code Global (05882) Diagnoses Fracture of phalanx of right middle finger S62.602A
[2024-10-25 14:50] VITALS: BMI 29.1
--- OUTSIDE RECORDS SUMMARY | 2024-10-25 15:39 | XMS_ITS | Clinical Summary ---
Author Organization [employer] Address [address] [place] [address] [address] [place] [address] Care Team Providers Care Airplane Rigger Name Role Phone Unavailable Primary Care Provider [...] (09/26/2024 12:00 AM EDT) Urine NEGATIVE NEGATIVE [facility] Comment:This test was develo ped to detect early . Falsenegative results may occur after the 5th - 7th week ofpregnancy when using this test method. If clinicallyindicated, consider a serum hCG. 09/26/2024 09/26/2024 us Generic External Data Provider LAB URINE ORDERAB LES Final Result [facility] [address] [place] [phone] from Last 3 Months
== END 2024-10-25 15:20 | disposition home or self-care (01) ==
LOC: HO.HOS 14:20
PROVIDERS: Visit Provider Orthopaedic Surgery
DX: S62.602A Fracture of unspecified phalanx of right middle finger, initial encounter for closed fracture (principal)
CPT/HCPCS: 99024

== ENCOUNTER → 2024-10-25 14:22 | Outpatient (BNV) | payer MEDICAID, SELFPAY | PROVIDERS: Visit Provider Radiology Diagnostic Radiology | DX: S62.622D Displaced fracture of middle phalanx of right middle finger, subsequent encounter for fracture with routine healing (principal) | CPT/HCPCS: 73130 ==

== ENCOUNTER 2024-12-18 00:21 | Emergency (ER) | payer MEDICAID, SELFPAY ==
[2024-12-18] VITALS (10 sets, daily range): BP systolic 95–109; BP diastolic 52–73; PULSE 105–116; RESP 20–24; TEMP 36.4–37.1; O2SAT 95–100; BMI 27.4
--- NOTE | ~2024-12-18 | XR_ITS ---
CLINICAL HISTORY: post reduction 3 views left wrist Comparison: CR - XR WRIST LT MIN 3V - 12/18/24 00:56 EDT Findings: Fracture of the distal left radial metaphysis is in improved alignment with mild residual impaction. Mildly displaced ulnar styloid fracture is unchanged. Joint alignment is normal. Impression: 1. Improved alignment of the distal left radial fracture. 2. Unchanged ulnar styloid fracture. This document has been electronically signed by: Aristides Murphy MD on 12/18/2024 03:46:28
--- NOTE | ~2024-12-18 | XR_ITS ---
CLINICAL HISTORY: Fell, pain, deformity 3 views left wrist Comparison: None provided Findings: There is an impacted comminuted fracture of the distal left radial metaphysis. There is no appreciable intra-articular extension. The carpal bones remain normally aligned with the distal radial articular surface. There is a mildly displaced ulnar styloid fracture. Impression: Fractures of the distal left radius and ulnar styloid. This document has been electronically signed by: Aristides Murphy MD on 12/18/2024 01:30:50
[2024-12-18] MEDS: Ketamine HCl/NS 50 MG/5 ML SYRINGE 68.039 MG IVPUSH (01:59)
--- NOTE | 2024-12-18 02:12 | PC.NURSE ---
late entry- pt a&ox4, respirations even and unlabored. pt from triage, reports being at democrat with etoh use, reports getting up from chair and falling onto left wrist. deformity of left wrist noted, +pulses with doppler noted. 20g placed in right ac. MD Velasquez, NATHAN Rose and RT at bedside for conscious sedation. all forms filled out prior to procedure. vss. pt medicated per mar and procedure completed. see mar and documention
--- NOTE | 2024-12-18 02:22 | PC.NURSE ---
pt remains on room air at this time, maintaining airway, a&ox4, and denies any pain video turnaround engineer used
--- NOTE | 2024-12-18 04:35 | ED_ITS ---
HPI - Extremity Problem General Chief complaint: Extremity Injury, Upper Stated complaint: left wrist injury Time Seen by Provider: 12/18/24 00:44 Source: patient Limitations: language barrier and other (Intoxicated) History of Present Illness ED Provider: Uzma Rose PA-C HPI Narrative: 34-year-old female presents with left wrist pain. Patient has been drinking overnight, she fell on outstretched hand. Now with pain, swelling deformity of the left wrist. History limited as the patient is hostile, belligerent and intoxicated. Related Data Previous Rx's ?Medication ?Instructions ?Recorded ibuprofen 600 mg tablet 600 mg PO Q6H PRN pain #20 t abs 09/19/24 ketorolac 10 mg tablet 10 mg PO Q6H PRN pain #20 ta bs 12/18/24 oxycodone 5 mg tablet 5 mg PO Q8H PRN pain #7 tabs 12/18/24 Allergies Allergy/AdvReac Type Severity Reaction Status Date / Time No Known Allergies (No Known Allergy Verified 12/18/24 00:30 Allergies*) Review of Systems Review of Systems: Unable to obtain as the patient is intoxicated and belligerent Yes all other systems are reviewed and are negative PMFSH Past Medical History Attestation statement: The following information was validated with the patient. Medical History (Updated 12/18/24 @ 04:41 by NATHAN Beverly) Hx of fall Hx of gastritis Hx of nausea and vomiting Hx of abdominal pain Surgical History No pertinent past surgical history Social History Social History Alcohol intake: current Alcohol intake frequency: holidays/special occasions only Patient Tobacco Use Status: Never used Tobacco Smoked in Last 30 Days: No Use of substances other than those prescribed or required for medical reasons: No Advance Directives: No Advance Directives Information Provided: No Do you have a plan to hurt others: No Plan Patient : No Current occupational status: unemployed 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 Physical Exam Vital Signs: Vital Signs: Last Vital Signs Temp 98.8 F 12/18/24 02:20 Pulse 105 H 12/18/24 04:41 Resp 20 12/18/24 04:41 BP 97/65 12/18/24 04:41 Pulse Ox 95 12/18/24 04:41 O2 Del Method Room Air 12/18/24 04:41 Oxygen Flow Rate 2 12/18/24 02:00 BMI result Body Mass Index 27.4 Const: Other: Awake, yelling at people in the exam room Orientation/consciousness: patient oriented x3 HEENT: Other: Alcohol halitosis Resp: Effort & Inspection: normal respiratory effort Cardio: Other: Normal peripheral perfusion Skin: Other: Warm dry no rash Neuro: General: patient oriented x3, no focal motor deficits and CN's II-XI intact bilaterally Extrem: Other: Swelling and ecchymosis of the left wrist, not able to flex and extend pulses intact Psych: Other: Uncooperative, hostile, intoxicated Medications Administered Discontinued Medications Generic Name Dose Route Start Last Admin Trade Name Freq PRN Reason Stop Dose Admin Ketamine HCl 68.039 mg 12/18/24 01:34 12/18/24 01:59 Ketamine Hcl/Ns 50 Mg/5 Ml Syringe 1 mg/kg (68.039 mg) 12/18/24 01:35 68.039 mg IVPUSH Administration ONCE ONE Midazolam HCl 3 mg 12/18/24 01:34 12/18/24 01:43 Midazolam Hcl 2 Mg/2 Ml Vial IVPUSH 12/18/24 01:35 3 mg ONCE ONE Administration Ondansetron HCl 4 mg 12/18/24 01:40 12/18/24 01:43 Ondansetron Hcl 4 Mg/2 Ml Vial IVPUSH 12/18/24 01:41 4 mg ONCE ONE Administration Medical Decision Making Medical Decision Making MDM Narrative: 34-year-old female presents with left wrist pain. Patient has been drinking overnight, she fell on outstretched hand. Now with pain, swelling deformity of the left wrist. History limited as the patient is hostile, belligerent and intoxicated. Problem: Intoxication History: Per patient which is limited I have considered the following differential diagnoses: Fracture, dislocation, sprain, contusion Plan: We will be obtaining x-rays, we are setting up for procedural sedation, it appears there was an obvious acute injury beyond a sprain. I have independently reviewed the following tests: X-ray left wrist:Findings: There is an impacted comminuted fracture of the distal left radial metaphysis. There is no appreciable intra-articular extension. The carpal bones remain normally aligned with the distal radial articular surface. There is a mildly displaced ulnar styloid fracture. Impression: Fractures of the distal left radius and ulnar styloid. X-ray left wrist postreduction:Findings: Fracture of the distal left radial metaphysis is in improved alignment with mild residual impaction. Mildly displaced ulnar styloid fracture is unchanged. Joint alignment is normal. Impression: 1. Improved alignment of the distal left radial fracture. 2. Unchanged ulnar styloid fracture. Differential Diagnosis Differential Diagnoses: The differential diagnosis associated with the presentation includes See medical decision-making Admission/Observation Consideration of admission/observation: Escalation of care including admission/observation considered Not applicable Lab Data MDM Lab Attestation statement: I reviewed the patient's lab results. Radiology Impression Discussion of test interpretation with radiology: I have reviewed the radiol ogist's reading. Procedures Orthopedic Splinting/Casting Injury #1: Side: left Upper Extremity Injury Location: wrist Upper Extremity Immobilizer: sugar tong splint Other Orthopedic Equipment: other (sling) Procedural Sedation Indication: fracture/dislocation reduction ASA Class: I Mallampati Class: I Preparation: cafeteria monitor applied, pulse oximeter, capnometry used, supplemental O2 applied, suction/airway equipment at bedside and IV secured Midazolam: IV Midazolam dose (mg): 3 Ketamine: IV Ketamine dose (mg): 68 Patient Tolerated Procedure: well Complications: none Discharge Plan Discharge Clinical Impression: Left wrist fracture Qualifiers: Encounter type: initial encounter Fracture type: closed Qualified Code(s): S62.102A - Fracture of unspecified carpal bone, left wrist, initial encounter for closed fracture Patient Disposition: Home, Self-Care Instructions: Wrist Fracture in Adults (ED) Additional Instructions: You sustained a fracture of both bones in the left wrist, you were placed in a splint. I have provided you with a contact for the orthopedic service, they should reach out to you for a follow up appointment. You can call as well. Keep the splint clean and dry use the sling to support the injuries. Use the prescribed pain medications as directed with food. One of the medications the oxycodone can be constipating, use [id number] Colace which is a stool softener, to prevent constipation. Prescriptions: New oxycodone 5 mg tablet 5 mg PO Q8H PRN (Reason: pain) Qty: 7 0RF Rx Instructions: Partial Fill upon patient request. ketorolac 10 mg tablet 10 mg PO Q6H PRN (Reason: pain) Qty: 20 0RF Rx Instructions: maximum total duration of 5 days from all oral, intranasal, or parenteral formulations. The patient received an IV dose of Toradol here in the emergency room. No Action ibuprofen 600 mg tablet 600 mg PO Q6H PRN (Reason: pain) Qty: 20 0RF Referrals: Aguila Power MD [Physician, Orthopedics] Referral Note: left distal radial fracture, ulnar styloid fracture Stand Alone Forms: Work/School Release Print Language: Beninese
== END 2024-12-18 05:08 | disposition home or self-care (01) ==
PROVIDERS: Emergency Provider Emergency Medicine
DX: S62.102A Fracture of unspecified carpal bone, left wrist, initial encounter for closed fracture (principal); W19.XXXA Unspecified fall, initial encounter; Y93.9 Activity, unspecified; Y92.9 Unspecified place or not applicable; Y99.9 Unspecified external cause status; M25.532 Pain in left wrist
CPT/HCPCS: 29125; 73110; 96374; 96375; 99284; 99285; J1885; J2250; J2405

== ENCOUNTER → 2024-12-18 00:56 | Outpatient (BNV) | payer MEDICAID, SELFPAY | PROVIDERS: Emergency Provider Emergency Medicine; Visit Provider Radiology Diagnostic Radiology | DX: S52.502A Unspecified fracture of the lower end of left radius, initial encounter for closed fracture (principal); S52.612A Displaced fracture of left ulna styloid process, initial encounter for closed fracture; Z98.890 Other specified postprocedural states; W19.XXXA Unspecified fall, initial encounter | CPT/HCPCS: 73110 ==

== ENCOUNTER 2024-12-27 11:10 | Outpatient (REF) | payer MEDICAID, SELFPAY ==
--- OUTSIDE RECORDS SUMMARY | 2024-12-29 14:03 | XMS_ITS | Clinical Summary ---
Author Organization [employer] Address [address] [place] [address] [address] [place] [address] Care Team Providers Care Duralumin Metalworker Name Role Phone Unavailable Primary Care Provider [...] Name Priority Date/Time Associated Diagnosis Comments HCG, TOTAL, QN Routine 12/29/2024 6:34 AM EDT from Last 3 Months Results * hCG, Total, Quantitative (12/29/2024 6:34 AM EDT) HCG Quantitative <2 mIU/mL [facility] Comment:Weeks post LMP Appro ximate hCG(Last Menstrual Period) Range (mIU/ml)3 - 4 weeks 9 - 1304 - 5 weeks 75 - 2,6005 - 6 weeks 850 - 20,8006 - 7 weeks 4000 - 100,2007 - 12 weeks 11,500 - 289,22231 - 16 weeks 18,300 - 137,47968 - 29 weeks (2nd trimester) 1,400 - 53,85977 - 41 weeks (3rd trimester) 940 - 60,000The Patterson B- hCG assay is used for the early detection ofpregnancy; it cannot be used to diagnose any conditionunrelated to . If a B-hCG level is not supportedby the clinical evidence, results should be confirmed by analternative method (qualitative urine hCG, for example). 12/29/2024 6:34 AM EDT 12/29/2024 6:41 AM EDT us Generic External Data Provider LAB BLOOD ORDERAB LES Final Result [facility] [address] [place] [phone] from Last 3 Months
== END 2024-12-27 11:11 | disposition home or self-care (01) ==
LOC: HO.HOSX 11:10
PROVIDERS: Visit Provider Orthopaedic Surgery
DX: Z13.89 Encounter for screening for other disorder (principal)

== ENCOUNTER 2024-12-28 07:51 | Outpatient (REF) | payer MEDICAID, SELFPAY ==
--- NOTE | ~2024-12-28 | XR_ITS ---
CLINICAL HISTORY: M25.532 - Pain in left wrist Three views of the left wrist. COMPARISON: XR left wrist dated 12/18/24 at 02:44 EDT XR left wrist dated 12/18/24 at 00:56 EDT FINDINGS: Overlying cast obscures fine osseous details. Comminuted fracture of the distal left radius redemonstrated. There is increased dorsal angulation of the distal fracture component now measuring 18 degrees. Carpometacarpal alignment is maintained. Displaced ulnar styloid process fracture, stable. Carpals, metacarpals and visualized phalanges appear intact. IMPRESSION: 1. Increased dorsal angulation of comminuted mildly displaced fracture of the distal left radial metaphysis. No appreciable interval healing. 2. Stable displaced ulnar styloid process fracture. This document has been electronically signed by: Sanjay Healy MD on 12/29/2024 15:12:29
== END 2024-12-28 07:52 | disposition home or self-care (01) ==
LOC: HO.HOSX 07:51
PROVIDERS: Visit Provider Orthopaedic Surgery
DX: S52.572A Other intraarticular fracture of lower end of left radius, initial encounter for closed fracture (principal); S52.612A Displaced fracture of left ulna styloid process, initial encounter for closed fracture; W01.0XXA Fall on same level from slipping, tripping and stumbling without subsequent striking against object, initial encounter
CPT/HCPCS: 73110; 99212

== ENCOUNTER 2024-12-28 07:51 | Outpatient (AMB) | payer MEDICAID, SELFPAY ==
--- OUTSIDE RECORDS SUMMARY | 2024-12-28 07:54 | XMS_ITS | Clinical Summary ---
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
--- NOTE | 2024-12-28 08:27 | A.OFFVIS_ITS ---
Intake Visit Reasons: FC - Left wrist Fx, DOI 12/18/24 Intake Note: Cheri 34 yr old right hand dominant who is unemployed, presents today with her daughter Adalid, for a fracture care visit to her left wrist from DOI 12/18/24. Patient stated she been drinking on the night of injury, she fell on outstretched hand, felt pain and was seen at [facility] [place] [place] ED. Xrays taken showed a fracture. Patient was reduced and splinted. Today patient states she has had ongoing pain and has not been able to sleep. Allergies No Known Allergies (No Known Allergies*) Allergy (Verified 12/28/24 08:31) HPI HPI FC - Left wrist Fx, DOI 12/18/24: Details: Cheri is a 33 year old right hand dominant Tajik speaking woman who returns for a new left distal radius & ulnar styloid fractures, DOS:12/18/24, from a fall while drinking with friends. She was seen in the ED where a reduction was attempted and she was splinted. 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 She complains of pain in her wrist, and says she has not been able to sleep because of it. She denies any numbness or tingling. She is also S/P right middle finger middle phalanx CRPP, DOS: 09/26/24. She does care for her 2 year old niece. 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 Radiographs: 3 views of the left wrist were taken, viewed, and compared to post-reduction radiographs from 12/18/24 by me today in clinic. They show a displaced comminuted distal radius fracture with both dorsal & radial translation & apex volar angulation. There is also an ulnar styloid fracture Psych Appearance: grossly normal Affect: normal affect Attitude: cooperative Assessment & Plan Assessment & Plan (1) Fracture of left distal radius: Code(s): S52.502A - Unspecified fracture of the lower end of left radius, initial encounter for closed fracture Category: Medical (2) Fracture of styloid process of left ulna: Code(s): S52.612A - Displaced fracture of left ulna styloid process, initial encounter for closed fracture Category: Medical Plan Assessment and plan: 1. Left distal radius fracture, intra-articular S/P fall DOI: 12/18/24 ED reduction: 12/18/24 2. Left ulnar styloid fracture, S/P fall DOI: 12/18/24 I educated her about this condition I discussed operative and non-operative treatment options The patient would like to proceed with surgery The risks and benefits of operative treatment were discussed with the patient and the patient wishes to proceed with surgery. These risks include, but are not limited to risk of damage to blood vessels, nerves, tendons, infection, recurrence, incomplete relief of preoperative symptoms, persistent pain, possible need for further surgery and the risks associated with regional blocks and anesthesia. The plan is to take the patient to the operating room sometime on either 12/29/24 or 01/02/25 for the following procedures: 1. Left distal radius ORIF, under general All of the preoperative paperwork including the consent was reviewed today. All the patient's questions were answered. The patient understands that they will be contacted by our sand filler soon to schedule this procedure She denies Diabetes, blood thinners, asthma, heart, lung, kidney issues 3. Right middle finger spiral oblique middle phalanx fracture, S/P CRPP DOS: 09/26/24 K-wire removed This went on to heal well 4. Right middle finger stiffness Scribed for Cheryl Jordan MD by Vernon Mathias medical record consultant, on 12/28/24 at 8:40 AM, EST. Orders: Orders XR wrist LT min 3V Today M25.532 - Pain in left wrist Scribe Plan - Not visible on output: Scribed for Cheryl Jordan MD by Vernon Mathias, medical record consultant, on [ ] at [ ], EST. Coding Level of Care Code Est Pt Level 4 (89470) Diagnoses Fracture of left distal radius S52.502A Fracture of styloid process of left ulna S52.612A
== END 2024-12-28 09:04 | disposition home or self-care (01) ==
LOC: HO.HOS 07:52
PROVIDERS: Visit Provider Orthopaedic Surgery
DX: S52.502A Unspecified fracture of the lower end of left radius, initial encounter for closed fracture (principal); S52.612A Displaced fracture of left ulna styloid process, initial encounter for closed fracture
CPT/HCPCS: 99214

== ENCOUNTER → 2024-12-28 08:18 | Outpatient (BNV) | payer MEDICAID, SELFPAY | PROVIDERS: Visit Provider Radiology Diagnostic Radiology | DX: S52.502A Unspecified fracture of the lower end of left radius, initial encounter for closed fracture (principal); S52.612A Displaced fracture of left ulna styloid process, initial encounter for closed fracture | CPT/HCPCS: 73110 ==

== ENCOUNTER 2024-12-29 05:45 | Day surgery (SDC) | payer MEDICAID, SELFPAY ==
--- OUTSIDE RECORDS SUMMARY | 2024-12-28 16:27 | XMS_ITS | Clinical Summary ---
Author Organization [employer] Address [address] [place] [address] [address] [place] [address] Care Team Providers Care Outbound Sales Advisor Name Role Phone Unavailable Primary Care Provider [...]
[2024-12-29] VITALS (8 sets, daily range): BP systolic 90–104; BP diastolic 53–65; PULSE 74–86; RESP 16–19; TEMP 36.1–36.6; O2SAT 96–100; BMI 29.1
--- NOTE | ~2024-12-29 | FL_ITS ---
EXAMINATION: XR FLUOROSCOPY WITH IMAGES CLINICAL INFORMATION: [Left distal radial fracture COMPARISON: Prior x-ray, 12/28/2024 TECHNIQUE: Fluoroscopy time: 78 seconds DAP: 2.4 mGycm2 Images: 3 FINDINGS: Fluoroscopy the operating room for surgical fixation of a distal radial fracture. Redemonstrated mildly displaced ulnar styloid fracture. FL/FL guidance in OR IMPRESSION: Fluoroscopy during procedure. See procedure report for additional information. Electronically signed by: Marco A Horta MD 12/29/2024 11:39 AM EDT
[2024-12-29] MEDS: Lactated Ringers 1,000 ML 100 ML IVCONT (07:01)
--- NOTE | 2024-12-29 07:25 | HO.ANESPROP2 ---
Documented by User: Doris Fenton NP 12/28/24 13:11 HPI - Anesthesia Eval Consult details Narrative: 34yo F for Left Radius Distal Fracture ORIF PMFSH Active Problems Active Problems: All Active Problems Fracture of styloid process of left ulna (Acute) Fracture of left distal radius (Acute) Fracture of phalanx of right middle finger (Acute) Past Medical History Medical History (Updated 12/28/24 @ 08:36 by Vernon Mathias) Hx of fall Hx of gastritis Hx of nausea and vomiting Hx of abdominal pain Family History Family history of problems with anesthesia: No Surgical History Surgical History No pertinent past surgical history History of Problems with Anesthesia: No Social History Social History Are you a primary animal care attendant to a significant other at home: No Do you presently have visiting nurse or other home services: No Alcohol intake: current Alcohol intake frequency: a few times a month Patient Tobacco Use Status: Never used Tobacco Second Hand Smoke Exposure: No Use of substances other than those prescribed or required for medical reasons: No Have you been hit, kicked, punched, or otherwise hurt by someone within the past year? 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 Meds Allergies Allergy/AdvReac Type Severity Reaction Status Date / Time No Known Allergies (No Known Allergy Verified 12/28/24 08:31 Allergies*) Assessment and Plan Assessment Anesthesia Assessment: Chart Reviewed Final Anesthetic Review Family History of Problems with Anesthesia: No History of Problems with Anesthesia: No Documented by User: Barbara Gardner DO 12/29/24 07:40 PMFSH Past Medical History Medical History (Updated 12/28/24 @ 08:36 by Vernon Mathias) Hx of fall Hx of gastritis Hx of nausea and vomiting Hx of abdominal pain Family History Family history of problems with anesthesia: No Surgical History Surgical History No pertinent past surgical history History of Problems with Anesthesia: No Social History Social History Are you a primary animal care attendant to a significant other at home: No Do you presently have visiting nurse or other home services: No Alcohol intake: current Alcohol intake frequency: a few times a month Patient Tobacco Use Status: Never used Tobacco Second Hand Smoke Exposure: No Use of substances other than those prescribed or required for medical reasons: No Have you been hit, kicked, punched, or otherwise hurt by someone within the past year? 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 Meds Allergies Allergy/AdvReac Type Severity Reaction Status Date / Time No Known Allergies (No Known Allergy Verified 12/28/24 08:31 Allergies*) Exam Exam Date and Time: 12/29/24 0725 Height,Weight and Vital Signs: Height 5 ft 1 in Weight 69.853 kg Vital Signs Temperature 97.9 F 12/29/24 06:20 Pulse Rate 83 12/29/24 06:20 Respiratory Rate 19 12/29/24 06:20 Blood Pressure 95/65 12/29/24 06:20 Pulse Oximetry 97 12/29/24 06:20 Oxygen Delivery Method Room Air 12/29/24 06:20 Temperature 97.9 F 12/29/24 06:20 Pulse Rate 83 12/29/24 06:20 Respiratory Rate 19 12/29/24 06:20 Blood Pressure 95/65 12/29/24 06:20 Pulse Oximetry 97 12/29/24 06:20 Oxygen Delivery Method Room Air 12/29/24 06:20 Airway Mallampati Class: I TM Dist: >3cm Neck ROM: Full Loose/Missing/Broken Teeth: No (patient denies any loose or broken teeth) Heart: S1S2 Lungs: CTAB Assessment and Plan Assessment Anesthesia Assessment: Anesthesia Plan Discussed and Chart Reviewed Final Anesthetic Review Family History of Problems with Anesthesia: No History of Problems with Anesthesia: No NPO: Yes ASA Class: I Final Preanesthetic Review: No Changes in Pt Med Stat, Meds/Allgs Chart Reviewed, Consent Obtained/Reviewed (marble worker at bedside for translation) and Anes Risks/Benef Reviewed Patient Risk: Low Procedure Risk: Low Anesthetic Plan Anesthetic Plan: GA, Regional Block (left brachial plexus block) and Agree w/ Assess. and Plan Disposition: Standard PACU
--- NOTE | 2024-12-29 07:45 | MHC.SHP ---
Pre-Procedural Eval Section A - 24 Hr Update-Section A only Date of Service: 12/29/24 The patient is an INPATIENT: No Changes since office visit: No Cold of Flu in the past 2 weeks, No New Medical Problems, No Changes in Medication and No Patient answered all questions The patient has been examined within 24 hours of the surgical procedure. The History & Physical has been completed within 30 days and I have reviewed it.: Yes Section B - Complete if H&P > 30 days Chief Complaint: Unspecified fracture of the lower end of left radi Allergies: Allergies Allergy/AdvReac Type Severity Reaction Status Date / Time No Known Allergies (No Known Allergy Verified 12/28/24 08:31 Allergies*) Plan I have reviewed the history and physical and performed a pertinent physical examination on my patient. No changes have occurred unless specified. Time Spent With Patient Time: Total time managing care of this patient today ____ minutes.
--- NOTE | 2024-12-29 07:46 | W.PM.OPN ---
Operative Note Operative Note Date of Service: 12/29/24 Narrative: Operative Note Narrative: Preop diagnosis: 1. Left Distal radius fracture Postop diagnosis: Same Procedure: 1. Left Distal radius fracture open reduction internal fixation, very distal and 2 part intra-articular Surgeon: Cheryl Jordan MD Tai Chi Instructor: None Anesthesia: General anesthesia plus regional block Findings: This fracture was very distal. For this reason I elected to utilize K-wires for fixation rather than a volar locking plate. Implants: 0.062 K-wires x2 and 0.054 K-wire x1 Tourniquet time: 52 minutes EBL: 5.0 ml Specimen: None Drains: None Complications: None Disposition: Brought to the recovery room in stable condition Plan: Follow-up in 10-14 days for wound check, suture removal and postop radiographs The patient will be placed in either a short-arm cast Encouraged no lifting of anything heavier than a cell phone. Please encourage active and passive range of motion of the digits. Anticipate K-wire at between 4 and 5 weeks postop. Indications: The patient is a 34 year old woman with a left distal radius fracture . The risks and benefits of operative treatment, including but not limited to risk of damage to blood vessels, nerves, tendons, infection, recurrence, persistent pain or numbness, incomplete resolution of preoperative symptoms, or need for further surgery were discussed with the patient and they wished to proceed with surgery. Procedure: Once consent was obtained patient was brought back to the operating suite and placed in the operating table in a supine position. A regional block was performed by the anesthesia team. Perioperative antibiotics and anesthesia was administered by the anesthesia team. A tourniquet was applied to the proximal aspect of the left upper extremity and the limb was prepped and draped in a standard surgical fashion. The limb was elevated exsanguinated with Esmarch bandage and the tourniquet inflated to 250 mm of mercury for a total tourniquet time of 52 minutes. The FluoroScan was used throughout the case to assess our reduction, and facilitate implant placement. A gentle closed reduction was 1st performed on the patient's left distal radius fracture. Was assessed radiographically before proceeding with the reduction internal fixation. I then made an 8 cm longitudinal incision over the distal aspect of the flexor carpi radialis tendon. The incision was made through the skin to the subcutaneous tissue using a 15. Blade. Then carefully dissected down to flexor carpi radialis tendon she tenotomy scissors. The FCR tendon sheath was then incised longitudinally using tenotomy scissors under direct visualization. The FCR tendon was then retracted ulnarly. I then made a longitudinal incision in the volar forearm fascia through the floor of FCR tendon sheath using tenotomy scissors under direct visualization. I identified the interval between the radial artery and the flexor tendons. This interval was developed further with my index finger, releasing some of the muscular fibers of the flexor pollicis longus. A dull weatlander retractor was then placed. I then created an ulnarly based flap of the pronator quadratus by releasing the radial and distal edges using a 15. Blade. A Chery elevator was used to elevate the pronator quadratus from the volar surface of the distal radius. This then revealed to us our distal radius fracture. The fracture was very distal. There was an intra-articular split with some comminution volarly. An open reduction was then performed on our distal radius fracture. After assessing just how distal this fracture was, I became concerned that if we placed a volar locking plate that the distal edge of the plate would be somewhat prominent and potentially put the overlying flexor tendons at wrist. For this reason I elected to proceed with internal fixation using K-wires. The mini C-arm was used throughout the case to assess our reduction and placement of all implants. I 1st placed a 0.062 K-wire retrograde through the tip of the radial styloid angled obliquely and retrograde across the fracture site and to the ulnar aspect of the shaft. I then placed a 0.054 K-wire also through the radial styloid advanced retrograde across the fracture site to the ulnar aspect of the shaft. Once satisfied with my reduction and placement of these 2 K-wires I added a 3rd K-wire, it was a 0.062 K-wire that was placed through the dorsal ulnar corner of the distal radius and advanced retrograde and obliquely across the fracture site onto the volar radial shaft. I was very satisfied with our reduction and placement of all implants. Final radiographs were then obtained. The DRUJ was assessed and found to be stable on exam. I was satisfied with our reduction and placement of all implants. At this point the wound was irrigated with normal saline. The pronator quadratus was reduced using some 3-0 Vicryl suture material. The tourniquet was then deflated and hemostasis was obtained with a brief period of local pressure and bipolar monopolar electrocautery. The subcutaneous layer was then reapproximated using some 4-0 Vicryl suture, and the skin edges were reapproximated using some 5 0 Prolene suture. The wound was then infiltrated with some 1% lidocaine with epinephrine postop pain control. A sterile dressing and a sugar-tong splint allowing for active flexion and extension of the digits was applied. The patient appears to have tolerated the procedure well and with no complications. All digits were well vascularized conclusion of the case.
== END 2024-12-29 11:15 | disposition home or self-care (01) ==
PROVIDERS: Anesthesiology; Visit Provider Orthopaedic Surgery
PROC: (CPT 25608; principal; 2024-12-29 07:30)
DX: S52.502A Unspecified fracture of the lower end of left radius, initial encounter for closed fracture (principal); S52.612A Displaced fracture of left ulna styloid process, initial encounter for closed fracture; M25.532 Pain in left wrist; W18.39XA Other fall on same level, initial encounter; Y93.89 Activity, other specified; Y92.9 Unspecified place or not applicable; Y99.9 Unspecified external cause status; Z91.81 History of falling; Z87.19 Personal history of other diseases of the digestive system; Z56.0 Unemployment, unspecified
CPT/HCPCS: 25608; 36415; 84702; J0131; J0690; J1100; J2003; J2004; J2250; J2371; J2405; J2704; J2795; J3010

== ENCOUNTER → 2024-12-29 05:45 | Outpatient (BNV) | payer MEDICAID, SELFPAY | PROVIDERS: Visit Provider Orthopaedic Surgery | DX: S52.572A Other intraarticular fracture of lower end of left radius, initial encounter for closed fracture (principal) | CPT/HCPCS: 25608 ==

== ENCOUNTER 2025-01-11 11:12 | Outpatient (REF) | payer MEDICAID, SELFPAY ==
--- NOTE | ~2025-01-11 | XR_ITS ---
EXAMINATION: XR WRIST, LEFT CLINICAL INFORMATION: M25.532 - Pain in left wrist COMPARISON: December 28 and December 18, 2024 TECHNIQUE: PA, lateral, and oblique views of the left wrist. FINDINGS: Since prior study, cast has been removed. 2 K wires have been placed across the radial styloid and one wire through the ulnar side of the distal radius stabilizing a comminuted impacted distal radial intra-articular fracture. Anterior and posterior displacement of the fracture fragments has been reduced since the prior. Radial styloid height and angulation has also been improved. Fracture through the base of the ulnar styloid is stable. XR/XR wrist LT min 3V IMPRESSION: Interval placement of K wires across an intra-articular fracture of the distal radius with improvement in the distal radial positioning and alignment. Stable ulnar styloid fracture. Electronically signed by: Osman Figueroa MD 01/11/2025 01:05 PM [facility]
== END 2025-01-11 11:13 | disposition home or self-care (01) ==
LOC: HO.HOSX 11:12
DX: Z47.89 Encounter for other orthopedic aftercare (principal); S52.502D Unspecified fracture of the lower end of left radius, subsequent encounter for closed fracture with routine healing; S52.612D Displaced fracture of left ulna styloid process, subsequent encounter for closed fracture with routine healing; X58.XXXD Exposure to other specified factors, subsequent encounter
CPT/HCPCS: 29075; 73110; 99212

== ENCOUNTER 2025-01-11 11:12 | Outpatient (AMB) | payer MEDICAID, SELFPAY ==
--- NOTE | 2025-01-11 12:12 | MHC.OFFVIS ---
Intake Visit Reasons: PO LT distal radius ORIF 12/29/24 AR Intake Note: Cheir 34 yr old female presents today for her P/O visit for her left distal radius ORIF DOS 03/31/[address] Jordan. State she has little pain and discomfort. Xrays updated in office. Allergies No Known Allergies (No Known Allergies*) Allergy (Verified 01/11/25 12:15) HPI HPI PO LT distal radius ORIF 12/29/24 AR: Details: Cheri 34 yr old female presents today for her P/O visit for her left distal radius ORIF DOS 12/29/[address] Jordan. State she has little pain and discomfort. Xrays updated in office. Denies numbness or tingling in the left hand. No other acute complaints or concerns at this time. 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 Neuro: Normal sensation of the tips of all digits of the left hand at this time Vascular: Cap refill brisk Pain: Minimal tenderness to palpation noted about left distal radius fracture No discomfort with range of motion of the left hand ROM: Patient is able to make a closed fist and extend all digits of the left hand fully Skin: Well approximated and well healing incision site noted on the volar left wrist No lacerations or abrasions. General: No ecchymosis, erythema, or evidence of infection. Psych: Appears grossly normal Affect normal Attitude cooperative Office Procedures Casting/Splints 45922-Vvha/Wrist Cast Application Procedure code (CPT) selection complete Results Reviewed Results Reviewed: X-rays obtained in the office today and independently reviewed by me, Robert Pink PA-C, demonstrate left distal radius fracture status post ORIF with all orthopedic hardware in place and in satisfactory clinical alignment. Assessment & Plan Assessment & Plan (1) Fracture of left distal radius: Code(s): S52.502A - Unspecified fracture of the lower end of left radius, initial encounter for closed fracture Category: Medical (2) Fracture of styloid process of left ulna: Code(s): S52.612A - Displaced fracture of left ulna styloid process, initial encounter for closed fracture Category: Medical Plan 1. Status post left distal radius ORIF DOS 12/29/2024 Patient appears to be recovering well postoperatively Patient is educated about the typical recovery course At this time, patient is placed into a short-arm cast Patient is educated on proper cast care and precautions Patient is educated that if the cast gets wet, dirty, damaged, or feels too tight or loose, she should call us for cast change 2 lb weight limit in left hand reinforced Patient should continue working on range of motion of the digits of the left hand Follow-up in 2 weeks with repeat x-rays for reassessment, anticipate cast removal at that time, sooner with any acute concerns Orders: Orders XR wrist LT min 3V 01/11/25 M25.532 - Pain in left wrist Coding Level of Care Code Global (62460) Diagnoses Fracture of left distal radius S52.502A Fracture of styloid process of left ulna S52.612A CPT Codes Casting - CPT: 46216-Ljla/Wrist Cast Application ([id number])
--- OUTSIDE RECORDS SUMMARY | 2025-01-11 13:37 | XMS_ITS | Clinical Summary ---
Author Organization [employer] Address [address] [place] [address] 7 [place] [address] Care Team Providers Care Plumbing Designer Name Role Phone Unavailable Primary Care Provider [...] 6:34 AM EDT) HCG Quantitative <2 mIU/mL [facility] Comment:Weeks post LMP Appro ximate hCG(Last Menstrual Period) Range (mIU/ml)3 - 4 weeks 9 - 1304 - 5 weeks 75 - 2,6005 - 6 weeks 850 - 20,8006 - 7 weeks 4000 - 100,2007 - 12 weeks 11,500 - 289,06585 - 16 weeks 18,300 - 137,58284 - 29 weeks (2nd trimester) 1,400 - 53,89632 - 41 weeks (3rd trimester) 940 - [...] Provider LAB BLOOD ORDERAB LES Final Result [facility] [address] [place] [phone] from Last 3 Months
== END 2025-01-11 12:58 | disposition home or self-care (01) ==
LOC: HO.HOS 11:13
DX: S52.502A Unspecified fracture of the lower end of left radius, initial encounter for closed fracture (principal); S52.612A Displaced fracture of left ulna styloid process, initial encounter for closed fracture
CPT/HCPCS: 29075; 99024

== ENCOUNTER → 2025-01-11 12:08 | Outpatient (BNV) | payer MEDICAID, SELFPAY | PROVIDERS: Visit Provider Radiology Diagnostic Radiology | DX: S52.502D Unspecified fracture of the lower end of left radius, subsequent encounter for closed fracture with routine healing (principal) | CPT/HCPCS: 73110 ==

== ENCOUNTER 2025-01-27 08:38 | Outpatient (REF) | payer MEDICAID, SELFPAY ==
--- NOTE | ~2025-01-27 | XR_ITS ---
EXAMINATION: XR WRIST 3 OR MORE VIEWS LEFT HISTORY: M25.532 - Pain in left wrist COMPARISON: Comparison is made with the prior examination dated 01/11/2025. FINDINGS: Three views of the left wrist are submitted. Osseous mineralization is normal. The patient is again noted to be status post internal fixation of a comminuted intra-articular fracture of the distal radius with 3 K wires. The fracture lines remain visible. A fracture of the ulnar styloid is again noted. The joint spaces are preserved. The soft tissues are unremarkable. XR/XR wrist LT min 3V IMPRESSION: Internal fixation of a comminuted fracture of the distal radial metaphysis without change. Electronically signed by: Yamil Wilkins MD 01/27/2025 09:19 AM [facility]
--- OUTSIDE RECORDS SUMMARY | 2025-01-30 09:00 | XMS_ITS | Clinical Summary ---
Author Organization [employer] Address [address] [place] [address] [address] [place] [address] Care Team Providers Care Aerial Gunner Name Role Phone Unavailable Primary Care Provider [...] 6:34 AM EDT) HCG Quantitative <2 mIU/mL [facility] Comment:Weeks post LMP Appro ximate hCG(Last Menstrual Period) Range (mIU/ml)3 - 4 weeks 9 - 1304 - 5 weeks 75 - 2,6005 - 6 weeks 850 - 20,8006 - 7 weeks 4000 - 100,2007 - 12 weeks 11,500 - 289,01219 - 16 weeks 18,300 - 137,05898 - 29 weeks (2nd trimester) 1,400 - 53,89573 - 41 weeks (3rd trimester) 940 - [...] Provider LAB BLOOD ORDERAB LES Final Result [facility] [address] [place] [phone] from Last 3 Months
== END 2025-01-27 08:39 | disposition home or self-care (01) ==
LOC: HO.HOSX 08:38
DX: S52.502D Unspecified fracture of the lower end of left radius, subsequent encounter for closed fracture with routine healing (principal); S52.612D Displaced fracture of left ulna styloid process, subsequent encounter for closed fracture with routine healing; X58.XXXD Exposure to other specified factors, subsequent encounter
CPT/HCPCS: 73110; 99212

== ENCOUNTER 2025-01-27 08:46 | Outpatient (AMB) | payer MEDICAID, SELFPAY ==
--- OUTSIDE RECORDS SUMMARY | 2025-01-27 08:49 | XMS_ITS | Clinical Summary ---
Author Organization [employer] Address [address] [place] [address] [address] [place] [address] Care Team Providers Care Water Well Driller Name Role Phone Unavailable Primary Care Provider [...] 10/06/2019 HPV/Cotest 10/06/2019 COVID-19 Vaccine (1 - 2024-2 6 season) 2024 Influenza Vaccine (#1) 2024 Zoster [...] 6:34 AM EDT) HCG Quantitative <2 mIU/mL [facility] Comment:Weeks post LMP Appro ximate hCG(Last Menstrual Period) Range (mIU/ml)3 - 4 weeks 9 - 1304 - 5 weeks 75 - 2,6005 - 6 weeks 850 - 20,8006 - 7 weeks 4000 - 100,2007 - 12 weeks 11,500 - 289,42110 - 16 weeks 18,300 - 137,81246 - 29 weeks (2nd trimester) 1,400 - 53,84741 - 41 weeks (3rd trimester) 940 - [...] Provider LAB BLOOD ORDERAB LES Final Result [facility] [address] [place] [phone] from Last 3 Months
--- NOTE | 2025-01-27 09:10 | MHC.OFFVIS ---
Vital Signs 01/27/25 09:16 Height 5 ft 1 in Weight 154 lb BMI 29.1 Intake Visit Reasons: PO LT distal radius ORIF 12/29/24 AR-w/xrays Intake Note: Cheri is a 34 year old right hand dominant female who presents today for a Post-operative visit status post Left Distal Radius ORIF, DOS: 12/29/[address] Jordan. At her last visit, she was placed in a short-arm cast. Today, patient denies any pain. She reports she is doing well and is ready to have her pins pulled out. Global Product Manager Required: Yes Global Product Manager Language: Supervisor Poultry Hatchery Services: Global Product Manager Present Global Product Manager Name: Cortez RMA/LM Allergies No Known Allergies (No Known Allergies*) Allergy (Verified 01/27/25 09:16) HPI HPI PO LT distal radius ORIF 12/29/24 AR-w/xrays: Details: Cheri is a 34 year old right hand dominant female who presents today for a Post-operative visit status post Left Distal Radius ORIF, DOS: 12/29/[address] Jordan. At her last visit, she was placed in a short-arm cast. Today, patient denies any pain. Reports she is feeling very well. She reports she is doing well and is ready to have her pins pulled out. Denies numbness or tingling in the left upper extremity. No other acute complaints or concerns at this time. [facility] Medical History (Updated 12/28/24 @ 08:36 by Vernon Mathias) Hx of fall Hx of gastritis Hx of nausea and vomiting Hx of abdominal pain Surgical History No pertinent past surgical history Social History Are you a primary residential child care counselor to a significant other at home: No Do you presently have visiting nurse or other home services: No Alcohol intake: current Alcohol intake frequency: a few times a month Comment: COUNTS CORRECT Patient Tobacco Use Status: Never used Tobacco Second Hand Smoke Exposure: No Current occupational status: unemployed 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 Neuro: Normal sensation of the tips of all digits of the left hand at this time Vascular: Cap refill brisk Pain: No tenderness to palpation noted about left distal radius fracture No discomfort with range of motion of the left hand ROM: Patient is able to make a closed fist and extend all digits of the left hand fully Skin: Well approximated and well healing incision site noted on the volar left wrist Pin sites clean, dry, intact, with no evidence of infection No lacerations or abrasions. General: No ecchymosis, erythema, or evidence of infection. Psych: Appears grossly normal Affect normal Attitude cooperative Results Reviewed Results Reviewed: X-rays obtained in the office today and independently reviewed by me, Robert Pink PA-C, demonstrate left distal radius fracture status post ORIF with all orthopedic hardware in place and in satisfactory clinical alignment with evidence of interval bony healing. Assessment & Plan Assessment & Plan (1) Fracture of left distal radius: Code(s): S52.502A - Unspecified fracture of the lower end of left radius, initial encounter for closed fracture Category: Medical (2) Fracture of styloid process of left ulna: Code(s): S52.612A - Displaced fracture of left ulna styloid process, initial encounter for closed fracture Category: Medical Plan 1. Status post left distal radius ORIF DOS 12/29/2024 Patient appears to be recovering well postoperatively Patient is educated about the typical recovery course Pins pulled in the office today without issue Patient is provided with a Velcro wrist splint to wear with all daytime activities, can remove while at rest to work on gentle range of motion of the left wrist 2 lb weight limit in left hand reinforced, no lifting without brace Patient should continue working on range of motion of the digits of the left hand Follow-up in 4 weeks with repeat x-rays for reassessment, sooner with any acute concerns Orders: Orders XR wrist LT min 3V Today M25.532 - Pain in left wrist Coding Level of Care Code Global (89276) Diagnoses Fracture of left distal radius S52.502A Fracture of styloid process of left ulna S52.612A
[2025-01-27 09:16] VITALS: BMI 29.1
== END 2025-01-27 09:54 | disposition home or self-care (01) ==
LOC: HO.HOS 08:47
DX: S52.502A Unspecified fracture of the lower end of left radius, initial encounter for closed fracture (principal); S52.612A Displaced fracture of left ulna styloid process, initial encounter for closed fracture
CPT/HCPCS: 99024

== ENCOUNTER → 2025-01-27 08:48 | Outpatient (BNV) | payer MEDICAID, SELFPAY | PROVIDERS: Visit Provider Radiology Diagnostic Radiology | DX: S52.502D Unspecified fracture of the lower end of left radius, subsequent encounter for closed fracture with routine healing (principal) | CPT/HCPCS: 73110 ==

== ENCOUNTER 2025-02-24 08:32 | Outpatient (REF) | payer MEDICAID, SELFPAY ==
--- NOTE | ~2025-02-24 | XR_ITS ---
EXAMINATION: XR WRIST NAVICULAR LEFT HISTORY: M25.532 - Pain in left wrist COMPARISON: Comparison is made with the prior examination dated 01/27/2025. FINDINGS: Four views of the left wrist, including a scaphoid view are submitted. Osseous mineralization is normal. Again seen is a comminuted intra-articular fracture of the distal radial metaphysis. The previously seen K wires have been removed. The fracture line remains visible. There is increased sclerosis at the fracture site, consistent with healing. A fracture of the ulnar styloid is also noted. The joint spaces are preserved. The soft tissues are unremarkable. XR/XR wrist LT w scaphoid IMPRESSION: Healing comminuted intra-articular fracture of the distal radial metaphysis. The previously seen K wires have been removed. Electronically signed by: Yamil Wilkins MD 02/24/2025 08:49 AM [facility]
--- OUTSIDE RECORDS SUMMARY | 2025-02-27 08:49 | XMS_ITS | Clinical Summary ---
Author Organization [email or web address] Address [address] [place] [address] [address] [place] [address] Care Team Providers Care Locomotive Firer Name Role Phone Unavailable Primary Care Provider [...] 6:34 AM EDT) HCG Quantitative <2 mIU/mL [facility] Comment:Weeks post LMP Appro ximate hCG(Last Menstrual Period) Range (mIU/ml)3 - 4 weeks 9 - 1304 - 5 weeks 75 - 2,6005 - 6 weeks 850 - 20,8006 - 7 weeks 4000 - 100,2007 - 12 weeks 11,500 - 289,31386 - 16 weeks 18,300 - 137,34252 - 29 weeks (2nd trimester) 1,400 - 53,10864 - 41 weeks (3rd trimester) 940 - [...] Provider LAB BLOOD ORDERAB LES Final Result [facility] [address] [place] [phone] from Last 3 Months
== END 2025-02-24 08:33 | disposition home or self-care (01) ==
LOC: HO.HOSX 08:32
DX: S52.612D Displaced fracture of left ulna styloid process, subsequent encounter for closed fracture with routine healing (principal); S52.502D Unspecified fracture of the lower end of left radius, subsequent encounter for closed fracture with routine healing; X58.XXXD Exposure to other specified factors, subsequent encounter; Z98.890 Other specified postprocedural states
CPT/HCPCS: 29075; 73110; 99212

== ENCOUNTER 2025-02-24 08:34 | Outpatient (AMB) | payer MEDICAID, SELFPAY ==
--- OUTSIDE RECORDS SUMMARY | 2025-02-24 08:47 | XMS_ITS | Clinical Summary ---
Author Organization [employer] Address [address] [place] [address] [address] [place] [address] Care Team Providers Care Secy Name Role Phone Unavailable Primary Care Provider [...] 6:34 AM EDT) HCG Quantitative <2 mIU/mL [facility] Comment:Weeks post LMP Appro ximate hCG(Last Menstrual Period) Range (mIU/ml)3 - 4 weeks 9 - 1304 - 5 weeks 75 - 2,6005 - 6 weeks 850 - 20,8006 - 7 weeks 4000 - 100,2007 - 12 weeks 11,500 - 289,78064 - 16 weeks 18,300 - 137,06896 - 29 weeks (2nd trimester) 1,400 - 53,08450 - 41 weeks (3rd trimester) 940 - [...] Provider LAB BLOOD ORDERAB LES Final Result [facility] [address] [place] [phone] from Last 3 Months
[2025-02-24 08:49] VITALS: BMI 29.1
--- NOTE | 2025-02-24 08:49 | MHC.OFFVIS ---
Vital Signs 02/24/25 08:49 Height 5 ft 1 in Weight 154 lb BMI 29.1 Intake Visit Reasons: PO LT distal radius CRPP 12/29/24 w/xrays Intake Note: Cheri is a 34 year old ,Kinyarwanda Speaking, Right hand dominant female who presents today for a post operative follow up s/p Left Distal Radius CRPP 12/29/24. At her last visit her pins were pulled and she was placed in a velcro wrist brace. She was given a 2 lb weight limit. Patient reports that she has pain on the dorsal aspect of the hand, this pain is mostly felt while she is lifting things - she has been lifting over her 2lb weight limit. Settlement Processor Required: Yes Settlement Processor Language: Parts Counter Representative Name: Farhan [id number] Allergies No Known Allergies (No Known Allergies*) Allergy (Verified 01/27/25 09:16) HPI HPI PO LT distal radius CRPP 12/29/24 w/xrays: Details: Cheri is a 34 year old ,Kinyarwanda Speaking, Right hand dominant female who presents today for a post operative follow up s/p Left Distal Radius CRPP 12/29/24. At her last visit her pins were pulled and she was placed in a velcro wrist brace. She was given a 2 lb weight limit. Patient reports that she has pain on the dorsal aspect of the hand, this pain is mostly felt while she is lifting things - she has been lifting over her 2lb weight limit. Patient reports that she has needed to lift her niece. 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 Neuro: Normal sensation of the tips of all digits of the left hand at this time Vascular: Cap refill brisk Pain: Mild tenderness to palpation noted about left distal radius fracture No discomfort with range of motion of the left hand ROM: Patient is able to make a closed fist and extend all digits of the left hand fully Skin: Well approximated and well healing incision site noted on the volar left wrist Pin sites clean, dry, intact, with no evidence of infection No lacerations or abrasions. General: No ecchymosis, erythema, or evidence of infection. Psych: Appears grossly normal Affect normal Attitude cooperative Office Procedures Casting/Splints [id number]/Wrist Cast Application Procedure code (CPT) selection complete Results Reviewed Results Reviewed: X-rays obtained in the office today and independently reviewed by me, Robert Pink PA-C, demonstrate left distal radius fracture status post ORIF with all orthopedic hardware in place and in satisfactory clinical alignment with evidence of interval bony healing. Assessment & Plan Assessment & Plan (1) Fracture of left distal radius: Code(s): S52.502A - Unspecified fracture of the lower end of left radius, initial encounter for closed fracture Category: Medical (2) Fracture of styloid process of left ulna: Code(s): S52.612A - Displaced fracture of left ulna styloid process, initial encounter for closed fracture Category: Medical Plan 1. Status post left distal radius ORIF DOS 12/29/2024 Patient appears to be recovering well postoperatively Patient is educated about the typical recovery course At this time, due to recurrence of tenderness and increase in pain in the setting of over activity, I feel it is best to place the patient back into a short-arm cast Patient is educated on proper cast care and precautions 2 lb weight limit in left hand reinforced Patient should continue working on range of motion of the digits of the left hand Follow-up in 2 weeks with repeat x-rays for reassessment, sooner with any acute concerns Orders: Orders XR wrist LT w scaphoid Today M25.532 - Pain in left wrist Coding Level of Care Code Global (21461) Diagnoses Fracture of left distal radius S52.502A Fracture of styloid process of left ulna S52.612A CPT Codes Casting - CPT: 99050-Yvhh/Wrist Cast Application ([id number])
== END 2025-02-24 09:22 | disposition home or self-care (01) ==
LOC: HO.HOS 08:34
DX: S52.502A Unspecified fracture of the lower end of left radius, initial encounter for closed fracture (principal); S52.612A Displaced fracture of left ulna styloid process, initial encounter for closed fracture
CPT/HCPCS: 29075; 99024

== ENCOUNTER → 2025-02-24 08:41 | Outpatient (BNV) | payer MEDICAID, SELFPAY | PROVIDERS: Visit Provider Radiology Diagnostic Radiology | DX: S52.502D Unspecified fracture of the lower end of left radius, subsequent encounter for closed fracture with routine healing (principal) | CPT/HCPCS: 73110 ==